=== PATIENT | female | born 1995 | race American Indian/Alaskan Native ===

== ENCOUNTER 2021-11-24 02:20 | Emergency (ER) | payer OTHER ==
[2021-11-24] MEDS ORDERED: traMADol 50 MG TAB PO ONE (02:39)
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
[2021-11-24 03:03] VITALS: BP 127/75
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
== END 2021-11-24 04:18 ==
LOC: ED 02:20
DX: S80.02XA Contusion of left knee, initial encounter (principal); S09.90XA Unspecified injury of head, initial encounter; F17.200 Nicotine dependence, unspecified, uncomplicated; Z79.899 Other long term (current) drug therapy; V87.7XXA Person injured in collision between other specified motor vehicles (traffic), initial encounter; Y93.89 Activity, other specified; Y92.488 Other paved roadways as the place of occurrence of the external cause; Y99.8 Other external cause status
CPT/HCPCS: 36415; 70450; 72125; 84703; 99284